=== PATIENT | male | born 1970 | race Hispanic/Latino ===

== ENCOUNTER 2023-03-09 11:11 | Emergency (ER) | payer OTHER ==
[~2023-03-09] VITALS: Ht 180.3 cm; Wt 145.1 kg
[2023-03-09] MEDS ORDERED: DEXAMETHASONE SOD PHOSPHATE 4 MG/ML 1ML VIAL IM ONE (11:30)
[2023-03-09] MEDS ORDERED: KETOROLAC 60 MG VIAL (30MG/ML) IM ONE (11:30)
[2023-03-09] MEDS ORDERED: METH4TAB3 PO (13:06)
[2023-03-09] MEDS ORDERED: IBUP-2077 PO (13:06)
[2023-03-09 14:09] VITALS: BP 142/84; PULSE 70; RESP 18; O2SAT 97
== END 2023-03-09 15:00 | disposition home or self-care (01) ==
LOC: EDH 11:11
DX: M16.11 Unilateral primary osteoarthritis, right hip (principal); E66.9 Obesity, unspecified; Z68.42 Body mass index [BMI] 45.0-49.9, adult; Z90.49 Acquired absence of other specified parts of digestive tract
CPT/HCPCS: 99284; 73502; 96372 ×2; J1100; J1885

== ENCOUNTER 2023-06-01 10:31 | Inpatient (IN) | payer OTHER ==
[~2023-06-01] VITALS: Ht 180.3 cm; Wt 149.1 kg
[2023-06-01] VITALS (12 sets, daily range): BP systolic 115–134; BP diastolic 59–84; PULSE 89–109; RESP 21–35; O2SAT 96–98
[~2023-06-01 10:31] MED LIST: FURO20TA6 PO
[2023-06-01 10:39] LABS: ABG BASE EXCESS -2.1 mmol/L (-2.0-3.0); ABG HCO3 21.3 mmol/L (21.0-28.0); ABG OXYGEN SATURATION 96.3 % (95.0-99.0); ABG PCO2 33 mmHg (35-48); ABG PH 7.431 (7.35-7.450); PO2, ARTERIAL BG 80.3 mmHg (83.0-108.0); VENT MODE, BG NC (ROOM AIR)
[2023-06-01 10:44] LABS: BASOPHILS # (AUTO) 0.12 K/uL (0.00-0.20); BASOPHILS % (AUTO) 0.9 % (0.0-5.0); EOSINOPHILS # (AUTO) 0.19 K/uL (0.00-0.70); EOSINOPHILS % (AUTO) 1.5 % (0.0-8.0); HEMATOCRIT 48.9 % (42-54); IMMATURE GRANULOCYTE ABSOLUTE 0.08 K/uL (0-1); LYMPHOCYTES # (AUTO) 1.5 K/uL (1.0-4.8); LYMPHOCYTES % (AUTO) 11.2 % (21.0-51.0); MEAN CORPUSCULAR HEMOGLOBIN 35.3 pg (27.0-33.0); MEAN CORPUSCULAR HGB CONC 35.6 g/dL (32.0-36.0); MEAN CORPUSCULAR VOLUME 99.2 fL (79-99); MONOCYTES # (AUTO) 2.3 K/uL (0.1-1.0); MONOCYTES % (AUTO) 17.8 % (3.0-13.0); NEUTROPHILS # (AUTO) 8.8 K/uL (1.8-7.7); PLATELET COUNT (AUTO) 146 K/uL (130-400); RED BLOOD CELL COUNT(AUTO) 4.93 MIL/uL (4.50-6.20); RED CELL DISTRIBUTION WIDTH 14.2 % (11.0-15.5); WHITE BLOOD COUNT (AUTO) 12.9 K/uL (4.8-10.8)
[2023-06-01 10:53] LABS: CREATININE 0.9 mg/dL (0.5-1.3); POTASSIUM 4.2 mmol/L (3.5-5.1)
[2023-06-01 10:58] LABS: ALBUMIN 1.9 g/dL (3.5-5.0); BILIRUBIN,TOTAL 4.9 mg/dL (0.2-1.0); MAGNESIUM 1.4 mg/dL (1.80-2.40); TOTAL PROTEIN, SERUM 6.5 g/dL (6.0-8.3)
[2023-06-01 10:58] LABS: RAPID GROUP A STREP negative (NEGATIVE)
[2023-06-01 11:02] LABS: SARS-CoV-2, RNA, NAAT NEGATIVE SARS CoV-2 (NEGATIVE)
[2023-06-01 11:10] LABS: INFLUENZA TYPE A Negative For Type A (NEGATIVE); INFLUENZA TYPE B Negative For Type B (NEGATIVE)
[2023-06-01 11:59] LABS: B-TYPE NATRIURETIC PEPTIDE 7 pg/mL (0-100)
[2023-06-01] MEDS: NITROGLYCERIN 1GM OINT 1 INCH/1GM TD ONE (12:54)
[2023-06-01] MEDS: ASPIRIN 325MG TAB PO ONE (12:54)
[2023-06-01] MEDS: FUROSEMIDE 40MG VIAL IV ONE (12:55)
[2023-06-01] MEDS ORDERED: ACETAMINOPHEN 500 MG TABLET PO PRN (13:00)
[2023-06-01] MEDS ORDERED: VANCOMYCIN PROTOCOL PER PHARMACY IV SCH (13:00)
[2023-06-01] MEDS ORDERED: ONDANSETRON 4MG INJ IVP PRN (13:00)
[2023-06-01] MEDS ORDERED: KETOROLAC 15MG/ML VIAL (15MG/ML) IM PRN (13:00)
[2023-06-01 13:04] LABS: INR 1.26 (0.85-1.15); PROTHROMBIN TIME 14.6 SEC (9.6-11.6)
[2023-06-01 13:05] LABS: PARTIAL THROMBOPLASTIN TIME 29.6 SEC (26.3-35.5)
[2023-06-01 13:07] LABS: HEMOGLOBIN A1C 5.8 % (4.0-6.0)
[2023-06-01] MEDS ORDERED: RENAL DOSE IV SCH (13:30)
[2023-06-01] MEDS: CEFEPIME HCL 2 GM VIAL IVPB SCH (13:35)
[2023-06-01] MEDS: DOXYCYCLINE 100MG+NS 250ML 250 ML IV SCH (13:41)
[2023-06-01] MEDS: PANTOPRAZOLE 40 MG/VIAL IVP SCH (13:42)
[2023-06-01] MEDS: BUDESONIDE 0.5 MG/2 ML INH IH SCH (13:50)
[2023-06-01] MEDS: IPRATROPIUM 0.5 MG/2.5 ML INH IH SCH (13:50)
[2023-06-01] MEDS: IPRATROPIUM/ALBUTEROL SULFATE 3 ML SOLUTION IH ONE (13:53)
[2023-06-01 13:56] LABS: AMPHET/METH SCREEN,URINE NEGATIVE (NEGATIVE); BARBITURATE SCREEN, URINE NEGATIVE (NEGATIVE); BENZODIAZEPINES SCREEN,URINE NEGATIVE (NEGATIVE); CANNABINOID SCREEN,URINE NEGATIVE (NEGATIVE); COCAINE SCREEN,URINE NEGATIVE (NEGATIVE); OPIATE SCREEN,URINE NEGATIVE (NEGATIVE); PHENCYCLIDINE SCREEN,URINE NEGATIVE (NEGATIVE)
[2023-06-01 14:17] LABS: APPEARANCE,URINE CLEAR (CLEAR); BILIRUBIN,URINE NEGATIVE (NEGATIVE); COLOR,URINE YELLOW (YELLOW); GLUCOSE, URINE (UA) NEGATIVE (NEGATIVE); KETONES,URINE NEGATIVE (NEGATIVE); LEUKOCYTE ESTERASE ,URINE NEGATIVE Leu/uL (NEGATIVE); NITRATE,URINE NEGATIVE (NEGATIVE); OCCULT BLOOD,URINE NEGATIVE (NEGATIVE); PH,URINE 5.5 (5.0-8.0); PROTEIN,URINE NEGATIVE (NEGATIVE); UROBILINOGEN,URINE 0.2 mg/dL (0.2-1.0)
[2023-06-01 14:18] LABS: APPEARANCE BODY FLUID CLOUDY (CLEAR); COLOR,BODY FLUID RED (LT YELLOW); SPECIMENTYPE,BODY FLUID PLEURAL
[2023-06-01 14:19] LABS: TOTAL VOLUME,BODY FLUID 150 mL
[2023-06-01 14:20] LABS: ADD UA MICROSCOPIC NO
[2023-06-01 14:29] LABS: BODY FLUID RBC 35678 /cu. mm.; BODY FLUID WBC 1598 /cu. mm.
[2023-06-01] MEDS: VANCOMYCIN 2GM/500 ML BAG 500 ML IV ONE (14:39)
[2023-06-01 14:46] LABS: BF EOSINOPHIL 2 %; BF LYMPHOCYTE 25 %; BF MONOCYTE 2 %; BF TOTAL CELLS COUNTED 100
[2023-06-01] MEDS ORDERED: IOHEXOL-350 75 ML VIAL IV ONE (15:23)
[2023-06-01 15:29] LABS: GLUCOSE PLEURAL FLUID 139; PROTEIN PLEURAL FLUID 3.8 mg/dL
[2023-06-01] MEDS: MAGNESIUM 2GM PREMIX 50ML 50 ML IV SCH (17:11)
[2023-06-01] MEDS: SOLU-MEDROL 40MG VIAL IVP SCH (17:38)
[2023-06-01] MEDS ORDERED: BUDESONIDE 0.5 MG/2 ML INH IH SCH (18:00)
[2023-06-01] MEDS ORDERED: FURO40TA5 PO (18:09)
[2023-06-01] MEDS ORDERED: SPIR50TA5 PO (18:09)
[2023-06-01] MEDS ORDERED: SACU1TAB PO (18:09)
[2023-06-01 18:52] LABS: TOTAL PROTEIN, SERUM 5.9 g/dL (6.0-8.3)
[2023-06-01 19:41] LABS: HIV 1&2 ANTIBODY Non-Reactive (Negative)
[2023-06-01 19:42] LABS: HIV-1 p24 Antigen Non-Reactive (Negative)
[2023-06-01] MEDS: SACUBITRIL/VALSARTAN 1 EACH TABLET PO SCH (20:07)
[2023-06-02] VITALS (52 sets, daily range): BP systolic 91–167; BP diastolic 51–100; PULSE 66–104; RESP 10–29; TEMP 97.5; O2SAT 96–100
[2023-06-02] MEDS ORDERED: KETOROLAC 15MG/ML VIAL (15MG/ML) IV PRN (01:00)
[2023-06-02 04:51] LABS: BASOPHILS # (AUTO) 0.03 K/uL (0.00-0.20); BASOPHILS % (AUTO) 0.2 % (0.0-5.0); HEMATOCRIT 47.7 % (42-54); LYMPHOCYTES # (AUTO) 0.9 K/uL (1.0-4.8); LYMPHOCYTES % (AUTO) 4.8 % (21.0-51.0); MEAN CORPUSCULAR VOLUME 102.8 fL (79-99); MONOCYTES # (AUTO) 1.2 K/uL (0.1-1.0); MONOCYTES % (AUTO) 6.4 % (3.0-13.0); NEUTROPHILS # (AUTO) 16.6 K/uL (1.8-7.7); NEUTROPHILS % (AUTO) 87.5 % (40.0-77.0); PLATELET COUNT (AUTO) 146 K/uL (130-400); RED BLOOD CELL COUNT(AUTO) 4.64 MIL/uL (4.50-6.20); RED CELL DISTRIBUTION WIDTH 14.2 % (11.0-15.5)
[2023-06-02 05:07] LABS: ALBUMIN 1.8 g/dL (3.5-5.0); BILIRUBIN,TOTAL 6.1 mg/dL (0.2-1.0); CREATININE 1.1 mg/dL (0.5-1.3); MAGNESIUM 1.8 mg/dL (1.80-2.40); POTASSIUM 5.1 mmol/L (3.5-5.1); TOTAL PROTEIN, SERUM 6.1 g/dL (6.0-8.3)
[2023-06-02] MEDS: VANCOMYCIN 1.5 GM/250 ML BAG 250 ML IV SCH (05:34)
[2023-06-02] MEDS: HEPARIN 5,000 UNIT VIAL SQ SCH (09:55)
[2023-06-02] MEDS: METOCLOPRAMIDE 10 MG/2 ML VIAL IM STA (12:13)
[2023-06-02] MEDS: METOCLOPRAMIDE 10 MG/2 ML VIAL ONE (12:13)
[2023-06-02] MEDS: METOCLOPRAMIDE 10 MG/2 ML VIAL IVP STA (12:14)
[2023-06-02] MEDS ORDERED: FENTANYL CITRATE PF 50 MCG/1 ML 5ML AMP IV ONE (13:23)
[2023-06-02] MEDS ORDERED: BUPIVACAINE/PF 0.5% 30ML VIAL ONE (13:25)
[2023-06-02] MEDS: 0.9%NACL 1000ML 1,000 ML IV ONE ×2 (13:48→21:43)
[2023-06-02] MEDS ORDERED: ONDANSETRON 4MG INJ IVP PRN (14:00)
[2023-06-02 14:49] LABS: ABG BASE EXCESS -4.4 mmol/L (-2.0-3.0); ABG HCO3 22.3 mmol/L (21.0-28.0); ABG PCO2 47 mmHg (35-48); ABG PH 7.298 (7.35-7.450); CARBON MONOXIDE 0.1; PO2, ARTERIAL BG 164.3 mmHg (83.0-108.0); VENT MODE, BG OR ANESTH (ROOM AIR)
[2023-06-02] MEDS: BUPIVACAINE/PF 0.5% 30ML VIAL INJ ONE (14:51)
[2023-06-02] MEDS ORDERED: MORPHINE PF 100MG/10ML AMP IV ONE (15:27)
[2023-06-02 16:22] LABS: HEPATITIS A IGM ANTIBODY Non-Reactive (Nonreactive); HEPATITIS B CORE IGM ANTIBODY Non-Reactive (Negative); HEPATITIS B SURFACE ANTIGEN Non-Reactive (Nonreactive); HEPATITIS C ANTIBODY Reactive (Nonreactive)
[2023-06-02] MEDS: TRAMADOL HCL 50 MG TABLET PO PRN (16:55)
[2023-06-02] MEDS: SUGAMMADEX SODIUM 200 MG/2 ML VIAL IV ONE (16:56)
[2023-06-02] MEDS: CEFAZOLIN SODIUM 2 GM VIAL IVPB SCH (17:07)
[2023-06-02] MEDS: KETOROLAC 30MG VIAL (30MG/ML) IVP SCH (17:07)
[2023-06-02 19:39] LABS: ABG BASE EXCESS -6.2 mmol/L (-2.0-3.0); ABG HCO3 21.3 mmol/L (21.0-28.0); ABG PCO2 50 mmHg (35-48); PO2, ARTERIAL BG 105.7 mmHg (83.0-108.0); VENT MODE, BG PNR (ROOM AIR)
[2023-06-02 19:58] LABS: BASOPHILS # (AUTO) 0.06 K/uL (0.00-0.20); BASOPHILS % (AUTO) 0.2 % (0.0-5.0); HEMATOCRIT 47.6 % (42-54); IMMATURE GRANULOCYTE ABSOLUTE 0.32 K/uL (0-1); LYMPHOCYTES % (AUTO) 3.1 % (21.0-51.0); MEAN CORPUSCULAR HEMOGLOBIN 36.1 pg (27.0-33.0); MEAN CORPUSCULAR HGB CONC 34.5 g/dL (32.0-36.0); MEAN CORPUSCULAR VOLUME 104.8 fL (79-99); MONOCYTES # (AUTO) 2.9 K/uL (0.1-1.0); MONOCYTES % (AUTO) 9.3 % (3.0-13.0); NEUTROPHILS # (AUTO) 26.6 K/uL (1.8-7.7); NEUTROPHILS % (AUTO) 86.4 % (40.0-77.0); PLATELET COUNT (AUTO) 151 K/uL (130-400); RED BLOOD CELL COUNT(AUTO) 4.54 MIL/uL (4.50-6.20); RED CELL DISTRIBUTION WIDTH 14.2 % (11.0-15.5)
[2023-06-02 20:07] LABS: CREATININE 1.4 mg/dL (0.5-1.3); POTASSIUM 5.1 mmol/L (3.5-5.1); WHITE BLOOD COUNT (AUTO) 30.9 K/uL (4.8-10.8)
[2023-06-02 20:09] LABS: GLUCOSE PLEURAL FLUID 135; PROTEIN PLEURAL FLUID 3.9 mg/dL
[2023-06-02 20:12] LABS: ALBUMIN 1.8 g/dL (3.5-5.0); BILIRUBIN,TOTAL 4.9 mg/dL (0.2-1.0); TOTAL PROTEIN, SERUM 6.1 g/dL (6.0-8.3)
[2023-06-02 20:43] LABS: BODY FLUID RBC 51059 /cu. mm.; BODY FLUID WBC 5224 /cu. mm.
[2023-06-02] MEDS: FAMOTIDINE 20MG TAB PO SCH (20:44)
[2023-06-02] MEDS: CEFEPIME HCL 2 GM VIAL IVPB SCH (20:44)
[2023-06-02] MEDS: DOCUSATE SODIUM 100 MG CAP PO ONE (20:44)
[2023-06-02 20:51] LABS: APPEARANCE BODY FLUID CLOUDY (CLEAR); COLOR,BODY FLUID RED (LT YELLOW); SPECIMENTYPE,BODY FLUID PLEURAL
[2023-06-02 21:05] LABS: TOTAL VOLUME,BODY FLUID 25 mL
[2023-06-02 21:06] LABS: PH PLEURAL FLUID 7
[2023-06-02] MEDS: DOXYCYCLINE 100MG+NS 250ML 250 ML IV SCH (21:29)
[2023-06-02] MEDS: 0.9%NACL 1000ML 2,259 ML IV STA (21:42)
[2023-06-02 21:43] LABS: BAND NEUTROPHILS % (MANUAL) 7 % (0-2); LYMPHOCYTES % (MANUAL) 2 % (22-44); MAN.DIFF COMMENT-IMPRESSION MANUAL DIFFERENTIAL; MONOCYTES % (MANUAL) 7 % (2-9); SEGMENTED NEUTROPHILS % 84 % (40-70); TOTAL CELLS COUNTED 100
[2023-06-02 22:56] LABS: BF LYMPHOCYTE 13 %
[2023-06-03] VITALS (53 sets, daily range): BP systolic 88–157; BP diastolic 43–101; PULSE 77–102; RESP 11–20; TEMP 97–97.8; O2SAT 94–100
[2023-06-03 05:52] LABS: MEAN CORPUSCULAR HEMOGLOBIN 35.5 pg (27.0-33.0); MEAN CORPUSCULAR HGB CONC 34.6 g/dL (32.0-36.0); MEAN CORPUSCULAR VOLUME 102.5 fL (79-99); RED CELL DISTRIBUTION WIDTH 13.9 % (11.0-15.5)
[2023-06-03 06:08] LABS: ALBUMIN 1.6 g/dL (3.5-5.0); BILIRUBIN,TOTAL 3.3 mg/dL (0.2-1.0); CREATININE 1.5 mg/dL (0.5-1.3); MAGNESIUM 2.1 mg/dL (1.80-2.40); POTASSIUM 5.6 mmol/L (3.5-5.1); TOTAL PROTEIN, SERUM 5.4 g/dL (6.0-8.3); VANCOMYCIN TROUGH 15.9 UG/ML (10.0-20.0)
[2023-06-03] MEDS: IPRATROPIUM/ALBUTEROL SULFATE 3 ML SOLUTION IH SCH (06:14)
[2023-06-03] MEDS: 0.9%NACL 1000ML 1,000 ML IV ONE (11:40)
[2023-06-03] MEDS: LINEZOLID 600 MG/ISO-OSM 300 ML IV SCH (14:30)
[2023-06-03] MEDS: 0.9%NACL 1000ML 1,000 ML IV SCH (14:34)
[2023-06-03 17:09] LABS: INR 1.26 (0.85-1.15); PROTHROMBIN TIME 14.6 SEC (9.6-11.6)
[2023-06-03 17:10] LABS: PARTIAL THROMBOPLASTIN TIME 31.3 SEC (26.3-35.5)
[2023-06-03] MEDS ORDERED: VANCOMYCIN 1.25 GM/250 ML BAG 250 ML IV SCH (18:00)
[2023-06-03] MEDS: 0.9%NACL 10ML VIAL IV SCH (20:14)
[2023-06-04] VITALS (41 sets, daily range): BP systolic 103–150; BP diastolic 35–86; PULSE 72–138; RESP 10–26; O2SAT 94–98
[2023-06-04 04:02] LABS: HEMATOCRIT 38.7 % (42-54); MEAN CORPUSCULAR HEMOGLOBIN 35.8 pg (27.0-33.0); MEAN CORPUSCULAR HGB CONC 34.6 g/dL (32.0-36.0); MEAN CORPUSCULAR VOLUME 103.5 fL (79-99); RED BLOOD CELL COUNT(AUTO) 3.74 MIL/uL (4.50-6.20); RED CELL DISTRIBUTION WIDTH 14.2 % (11.0-15.5); WHITE BLOOD COUNT (AUTO) 26.5 K/uL (4.8-10.8)
[2023-06-04 04:41] LABS: CREATININE 2.3 mg/dL (0.5-1.3); POTASSIUM 5.6 mmol/L (3.5-5.1)
[2023-06-04] MEDS: ALBUMIN (HUMAN) 25% 100 ML IV ONE ×2 (05:20→05:26)
[2023-06-04] MEDS: METOPROLOL TARTRATE 1 MG/ML 5ML VIAL IV ONE (05:42)
[2023-06-04] MEDS: KAYEXALATE 15GM/60ML PO ONE (09:38)
[2023-06-04 14:00] LABS: CREATININE,URINE RANDOM 163.48 mg/dL (30-135); SODIUM,URINE RANDOM < 13 mmol/l (40-220)
[2023-06-05] VITALS (29 sets, daily range): BP systolic 118–140; BP diastolic 52–84; PULSE 81–95; RESP 14–21; O2SAT 93–99
[2023-06-05] MEDS: MORPHINE 2 MG SYG IVP PRN (01:00)
[2023-06-05 04:25] LABS: BASOPHILS # (AUTO) 0.02 K/uL (0.00-0.20); BASOPHILS % (AUTO) 0.1 % (0.0-5.0); EOSINOPHILS # (AUTO) 0.01 K/uL (0.00-0.70); EOSINOPHILS % (AUTO) 0.1 % (0.0-8.0); HEMATOCRIT 35.1 % (42-54); IMMATURE GRANULOCYTE ABSOLUTE 0.13 K/uL (0-1); LYMPHOCYTES # (AUTO) 0.9 K/uL (1.0-4.8); LYMPHOCYTES % (AUTO) 5.8 % (21.0-51.0); MEAN CORPUSCULAR HEMOGLOBIN 35.2 pg (27.0-33.0); MEAN CORPUSCULAR HGB CONC 33.9 g/dL (32.0-36.0); MEAN CORPUSCULAR VOLUME 103.8 fL (79-99); MONOCYTES # (AUTO) 2.3 K/uL (0.1-1.0); MONOCYTES % (AUTO) 14.6 % (3.0-13.0); NEUTROPHILS # (AUTO) 12.4 K/uL (1.8-7.7); NEUTROPHILS % (AUTO) 78.6 % (40.0-77.0); PLATELET COUNT (AUTO) 109 K/uL (130-400); RED BLOOD CELL COUNT(AUTO) 3.38 MIL/uL (4.50-6.20); RED CELL DISTRIBUTION WIDTH 14.2 % (11.0-15.5); WHITE BLOOD COUNT (AUTO) 15.7 K/uL (4.8-10.8)
[2023-06-05 05:16] LABS: CREATININE 1.4 mg/dL (0.5-1.3); MAGNESIUM 1.8 mg/dL (1.80-2.40); PHOSPHORUS 3.6 mg/dL (2.5-4.9); POTASSIUM 4.6 mmol/L (3.5-5.1)
[2023-06-05] MEDS: LEVOFLOXACIN 750 MG/D5W 150ML BAG IV SCH (11:43)
[2023-06-06] VITALS (14 sets, daily range): BP systolic 90–114; BP diastolic 58–74; PULSE 73–140; RESP 18–22; O2SAT 91–98
[2023-06-06] MEDS: METOPROLOL SUCCINATE 25 MG TAB.SR.24H PO STA (03:28)
[2023-06-06] MEDS ORDERED: AMIODARONE 900MG VIAL 540 MG in DEXTROSE 5%-WATER 300 ML IV SCH (05:00)
[2023-06-06] MEDS ORDERED: AMIODARONE 900MG VIAL 360 MG in DEXTROSE 5%-WATER 200 ML IV SCH (05:00)
[2023-06-06 05:08] LABS: HEMATOCRIT 42.7 % (42-54); MEAN CORPUSCULAR HGB CONC 34.2 g/dL (32.0-36.0); MEAN CORPUSCULAR VOLUME 105.4 fL (79-99); RED BLOOD CELL COUNT(AUTO) 4.05 MIL/uL (4.50-6.20); RED CELL DISTRIBUTION WIDTH 14.6 % (11.0-15.5); WHITE BLOOD COUNT (AUTO) 13.4 K/uL (4.8-10.8)
[2023-06-06 05:24] LABS: CREATININE 1.1 mg/dL (0.5-1.3); MAGNESIUM 1.8 mg/dL (1.80-2.40); POTASSIUM 4.2 mmol/L (3.5-5.1)
[2023-06-06] MEDS: AMIODARONE 150MG VIAL ONE (05:29)
[2023-06-06] MEDS: DILTIAZEM 25MG INJ IVP ONE (05:36)
[2023-06-06] MEDS: [UNRECOGNIZED DRUG - OTHER] IV PRN (06:51)
[2023-06-06] MEDS: DILTIAZEM IV PRN (06:51)
[2023-06-06 12:34] LABS: ABG BASE EXCESS -1.7 mmol/L (-2.0-3.0); ABG HCO3 22.7 mmol/L (21.0-28.0); ABG OXYGEN SATURATION 94.6 % (95.0-99.0); ABG PCO2 38 mmHg (35-48); ABG PH 7.396 (7.35-7.450); PO2, ARTERIAL BG 72.4 mmHg (83.0-108.0); VENT MODE, BG NC (ROOM AIR)
[2023-06-06] MEDS: DRONEDARONE HYDROCHLORIDE 400 MG TABLET PO SCH (14:16)
[2023-06-06] MEDS: FUROSEMIDE 40 MG TABLET PO SCH (21:51)
[2023-06-07] VITALS (18 sets, daily range): BP systolic 90–141; BP diastolic 54–82; PULSE 68–144; RESP 18–22; O2SAT 91–94
[2023-06-07 04:20] LABS: BASOPHILS # (AUTO) 0.04 K/uL (0.00-0.20); BASOPHILS % (AUTO) 0.3 % (0.0-5.0); EOSINOPHILS # (AUTO) 0.34 K/uL (0.00-0.70); EOSINOPHILS % (AUTO) 2.2 % (0.0-8.0); HEMATOCRIT 42.8 % (42-54); IMMATURE GRANULOCYTE ABSOLUTE 0.22 K/uL (0-1); LYMPHOCYTES # (AUTO) 1.4 K/uL (1.0-4.8); LYMPHOCYTES % (AUTO) 8.8 % (21.0-51.0); MEAN CORPUSCULAR HEMOGLOBIN 35.9 pg (27.0-33.0); MEAN CORPUSCULAR HGB CONC 34.1 g/dL (32.0-36.0); MEAN CORPUSCULAR VOLUME 105.2 fL (79-99); MONOCYTES # (AUTO) 2.5 K/uL (0.1-1.0); NEUTROPHILS # (AUTO) 11.3 K/uL (1.8-7.7); NEUTROPHILS % (AUTO) 71.3 % (40.0-77.0); PLATELET COUNT (AUTO) 100 K/uL (130-400); RED BLOOD CELL COUNT(AUTO) 4.07 MIL/uL (4.50-6.20); RED CELL DISTRIBUTION WIDTH 14.7 % (11.0-15.5); WHITE BLOOD COUNT (AUTO) 15.8 K/uL (4.8-10.8)
[2023-06-07 04:44] LABS: CREATININE 1.1 mg/dL (0.5-1.3); MAGNESIUM 1.5 mg/dL (1.80-2.40); PHOSPHORUS 3.3 mg/dL (2.5-4.9)
[2023-06-07] MEDS: IPRATROPIUM 0.5 MG/2.5 ML INH IH SCH (06:00)
[2023-06-07] MEDS: TRAMADOL HCL 50 MG TABLET PO PRN (08:37)
[2023-06-07] MEDS: ENOXAPARIN SODIUM 40 MG/0.4 ML SYRINGE SQ SCH (08:39)
[2023-06-07] MEDS: SPIRONOLACTONE 25 MG TAB PO SCH (10:36)
[2023-06-07] MEDS: METOLAZONE 2.5 MG TABLET PO ONE (10:36)
[2023-06-07] MEDS: DILTIAZEM 60MG TAB PO SCH (13:31)
[2023-06-08] VITALS (16 sets, daily range): BP systolic 105–129; BP diastolic 58–69; PULSE 68–89; RESP 18–24; O2SAT 88–96
[2023-06-08 04:09] LABS: BASOPHILS # (AUTO) 0.07 K/uL (0.00-0.20); BASOPHILS % (AUTO) 0.4 % (0.0-5.0); EOSINOPHILS # (AUTO) 0.58 K/uL (0.00-0.70); EOSINOPHILS % (AUTO) 3.4 % (0.0-8.0); HEMATOCRIT 41.2 % (42-54); IMMATURE GRANULOCYTE ABSOLUTE 0.36 K/uL (0-1); LYMPHOCYTES # (AUTO) 1.6 K/uL (1.0-4.8); LYMPHOCYTES % (AUTO) 9.1 % (21.0-51.0); MEAN CORPUSCULAR HEMOGLOBIN 35.6 pg (27.0-33.0); MEAN CORPUSCULAR HGB CONC 34.2 g/dL (32.0-36.0); MONOCYTES # (AUTO) 2.7 K/uL (0.1-1.0); MONOCYTES % (AUTO) 15.8 % (3.0-13.0); NEUTROPHILS % (AUTO) 69.2 % (40.0-77.0); NUCLEATED RED BLOOD CELLS 0.1 % (0.0-0.19); PLATELET COUNT (AUTO) 104 K/uL (130-400); RED BLOOD CELL COUNT(AUTO) 3.96 MIL/uL (4.50-6.20); RED CELL DISTRIBUTION WIDTH 14.6 % (11.0-15.5); WHITE BLOOD COUNT (AUTO) 17.3 K/uL (4.8-10.8)
[2023-06-08 04:27] LABS: CREATININE 1.4 mg/dL (0.5-1.3); POTASSIUM 3.8 mmol/L (3.5-5.1)
[2023-06-08] MEDS: KCL 20 MEQ ERTAB PO PRN (05:50)
[2023-06-08] MEDS: METOLAZONE 2.5 MG TABLET PO SCH (10:36)
[2023-06-08] MEDS: ACETAMINOPHEN 325 MG TAB PO PRN (20:06)
[2023-06-09] VITALS (11 sets, daily range): BP systolic 106–135; BP diastolic 63–76; PULSE 62–83; RESP 18–22; O2SAT 93–95
[2023-06-09 03:53] LABS: BASOPHILS # (AUTO) 0.05 K/uL (0.00-0.20); BASOPHILS % (AUTO) 0.3 % (0.0-5.0); EOSINOPHILS # (AUTO) 0.54 K/uL (0.00-0.70); EOSINOPHILS % (AUTO) 3.4 % (0.0-8.0); HEMATOCRIT 38.8 % (42-54); LYMPHOCYTES # (AUTO) 1.5 K/uL (1.0-4.8); LYMPHOCYTES % (AUTO) 9.4 % (21.0-51.0); MEAN CORPUSCULAR HEMOGLOBIN 35.8 pg (27.0-33.0); MEAN CORPUSCULAR HGB CONC 35.8 g/dL (32.0-36.0); MONOCYTES # (AUTO) 2.8 K/uL (0.1-1.0); MONOCYTES % (AUTO) 17.8 % (3.0-13.0); NEUTROPHILS # (AUTO) 10.6 K/uL (1.8-7.7); NEUTROPHILS % (AUTO) 66.6 % (40.0-77.0); PLATELET COUNT (AUTO) 108 K/uL (130-400); RED BLOOD CELL COUNT(AUTO) 3.88 MIL/uL (4.50-6.20); RED CELL DISTRIBUTION WIDTH 14.8 % (11.0-15.5); WHITE BLOOD COUNT (AUTO) 15.9 K/uL (4.8-10.8)
[2023-06-09 04:08] LABS: CREATININE 1.6 mg/dL (0.5-1.3); POTASSIUM 3.8 mmol/L (3.5-5.1)
[2023-06-09] MEDS: FUROSEMIDE 40 MG TABLET PO SCH (07:49)
[2023-06-09 09:28] LABS: INR 1.22 (0.85-1.15); PROTHROMBIN TIME 14.2 SEC (9.6-11.6)
[2023-06-09 09:29] LABS: PARTIAL THROMBOPLASTIN TIME 30.8 SEC (26.3-35.5)
[2023-06-09] MEDS: REGADENOSON 0.4 MG/5 ML PF SYG IVP SCH (16:29)
[2023-06-10] VITALS (11 sets, daily range): BP systolic 110–132; BP diastolic 63–72; PULSE 69–82; RESP 18–22; O2SAT 93–98
[2023-06-10 04:08] LABS: BASOPHILS # (AUTO) 0.04 K/uL (0.00-0.20); BASOPHILS % (AUTO) 0.3 % (0.0-5.0); EOSINOPHILS # (AUTO) 0.42 K/uL (0.00-0.70); EOSINOPHILS % (AUTO) 3.1 % (0.0-8.0); HEMATOCRIT 39.3 % (42-54); IMMATURE GRANULOCYTE ABSOLUTE 0.24 K/uL (0-1); LYMPHOCYTES # (AUTO) 1.5 K/uL (1.0-4.8); LYMPHOCYTES % (AUTO) 10.8 % (21.0-51.0); MEAN CORPUSCULAR HEMOGLOBIN 35.8 pg (27.0-33.0); MEAN CORPUSCULAR HGB CONC 34.9 g/dL (32.0-36.0); MEAN CORPUSCULAR VOLUME 102.6 fL (79-99); MONOCYTES # (AUTO) 3.1 K/uL (0.1-1.0); MONOCYTES % (AUTO) 22.8 % (3.0-13.0); NEUTROPHILS # (AUTO) 8.2 K/uL (1.8-7.7); NEUTROPHILS % (AUTO) 61.2 % (40.0-77.0); NUCLEATED RED BLOOD CELLS 0.2 % (0.0-0.19); PLATELET COUNT (AUTO) 110 K/uL (130-400); RED BLOOD CELL COUNT(AUTO) 3.83 MIL/uL (4.50-6.20); RED CELL DISTRIBUTION WIDTH 14.8 % (11.0-15.5); WHITE BLOOD COUNT (AUTO) 13.4 K/uL (4.8-10.8)
[2023-06-10 04:22] LABS: ALBUMIN 1.6 g/dL (3.5-5.0); BILIRUBIN,TOTAL 3.6 mg/dL (0.2-1.0); CREATININE 1.9 mg/dL (0.5-1.3); MAGNESIUM 1.5 mg/dL (1.80-2.40); PHOSPHORUS 4.7 mg/dL (2.5-4.9); TOTAL PROTEIN, SERUM 5.1 g/dL (6.0-8.3)
[2023-06-10] MEDS: PANTOPRAZOLE 40 MG TAB DR PO SCH (09:54)
[2023-06-10] MEDS: SIMETHICONE 80 MG TAB.CHEW PO PRN (17:04)
[2023-06-10] MEDS: LACTULOSE 20 GM/30 ML UDCUP PO PRN (21:20)
[2023-06-10] MEDS: MAGNESIUM OXIDE 400 MG TABLET PO SCH (21:20)
[2023-06-11] VITALS (14 sets, daily range): BP systolic 107–144; BP diastolic 53–71; PULSE 60–86; RESP 18–22; O2SAT 84–97
[2023-06-11 04:10] LABS: BASOPHILS # (AUTO) 0.03 K/uL (0.00-0.20); BASOPHILS % (AUTO) 0.2 % (0.0-5.0); EOSINOPHILS # (AUTO) 0.35 K/uL (0.00-0.70); EOSINOPHILS % (AUTO) 2.7 % (0.0-8.0); HEMATOCRIT 36.6 % (42-54); IMMATURE GRANULOCYTE ABSOLUTE 0.16 K/uL (0-1); LYMPHOCYTES # (AUTO) 1.3 K/uL (1.0-4.8); LYMPHOCYTES % (AUTO) 10.2 % (21.0-51.0); MEAN CORPUSCULAR HEMOGLOBIN 35.5 pg (27.0-33.0); MEAN CORPUSCULAR HGB CONC 35.8 g/dL (32.0-36.0); MEAN CORPUSCULAR VOLUME 99.2 fL (79-99); MONOCYTES # (AUTO) 3.5 K/uL (0.1-1.0); MONOCYTES % (AUTO) 26.5 % (3.0-13.0); NEUTROPHILS # (AUTO) 7.8 K/uL (1.8-7.7); NEUTROPHILS % (AUTO) 59.2 % (40.0-77.0); NUCLEATED RED BLOOD CELLS 0.3 % (0.0-0.19); PLATELET COUNT (AUTO) 96 K/uL (130-400); RED BLOOD CELL COUNT(AUTO) 3.69 MIL/uL (4.50-6.20); RED CELL DISTRIBUTION WIDTH 14.7 % (11.0-15.5); WHITE BLOOD COUNT (AUTO) 13.2 K/uL (4.8-10.8)
[2023-06-11 04:25] LABS: ALBUMIN 1.7 g/dL (3.5-5.0); MAGNESIUM 1.7 mg/dL (1.80-2.40); POTASSIUM 3.5 mmol/L (3.5-5.1); TOTAL PROTEIN, SERUM 5.2 g/dL (6.0-8.3)
[2023-06-11] MEDS: FUROSEMIDE 40 MG TABLET PO SCH (08:42)
[2023-06-11] MEDS: MAGNESIUM OXIDE 400 MG TABLET PO ONE (12:38)
[2023-06-11] MEDS: POTASSIUM CHLORIDE 10% ELIXIR 20 MEQ/15 ML UDCUP PO PRN (12:39)
[2023-06-12 04:21] LABS: BASOPHILS # (AUTO) 0.04 K/uL (0.00-0.20); BASOPHILS % (AUTO) 0.3 % (0.0-5.0); EOSINOPHILS # (AUTO) 0.37 K/uL (0.00-0.70); EOSINOPHILS % (AUTO) 2.8 % (0.0-8.0); IMMATURE GRANULOCYTE ABSOLUTE 0.16 K/uL (0-1); LYMPHOCYTES # (AUTO) 1.7 K/uL (1.0-4.8); LYMPHOCYTES % (AUTO) 12.7 % (21.0-51.0); MEAN CORPUSCULAR HEMOGLOBIN 35.6 pg (27.0-33.0); MEAN CORPUSCULAR VOLUME 101.7 fL (79-99); MONOCYTES # (AUTO) 3.4 K/uL (0.1-1.0); MONOCYTES % (AUTO) 25.9 % (3.0-13.0); NEUTROPHILS # (AUTO) 7.4 K/uL (1.8-7.7); NEUTROPHILS % (AUTO) 57.1 % (40.0-77.0); NUCLEATED RED BLOOD CELLS 0.5 % (0.0-0.19); PLATELET COUNT (AUTO) 90 K/uL (130-400); RED BLOOD CELL COUNT(AUTO) 3.54 MIL/uL (4.50-6.20); RED CELL DISTRIBUTION WIDTH 14.4 % (11.0-15.5)
[2023-06-12 04:26] LABS: ALBUMIN 1.7 g/dL (3.5-5.0); BILIRUBIN,TOTAL 4.7 mg/dL (0.2-1.0); CREATININE 2.3 mg/dL (0.5-1.3); POTASSIUM 3.7 mmol/L (3.5-5.1); TOTAL PROTEIN, SERUM 5.1 g/dL (6.0-8.3)
[2023-06-12 05:00] VITALS: BP 100/57; PULSE 71; RESP 20
[2023-06-12 08:01] VITALS: BP 122/60; PULSE 80; RESP 20
[2023-06-12 08:22] VITALS: O2SAT 95
[2023-06-12] MEDS: FUROSEMIDE 20 MG TABLET PO SCH (08:39)
[2023-06-12 11:14] VITALS: PULSE 73; RESP 18
[2023-06-12 11:16] VITALS: PULSE 73; RESP 18; O2SAT 94
[2023-06-12 11:29] VITALS: BP 105/52; PULSE 62; RESP 20
[2023-06-12] MEDS ORDERED: DRON400T7 PO (11:59)
[2023-06-12] MEDS ORDERED: FURO20TA6 PO (11:59)
[2023-06-12] MEDS ORDERED: DILT60TA3 PO (11:59)
[2023-06-12] MEDS ORDERED: CEFD300C3 PO (11:59)
[2023-06-12] MEDS ORDERED: MAGN400T7 PO (11:59)
[2023-06-12] MEDS ORDERED: SPIR25TA6 PO (11:59)
[2023-06-12] MEDS: LEVOFLOXACIN 750 MG TABLET PO SCH (13:08)
[2023-06-12 13:40] LABS: CHOLESTEROL 89 mg/dL (<200); HDL CHOLESTEROL 28 mg/dL (29-71); LDL DIRECT 58 mg/dL (0-99); TRIGLYCERIDES 49 mg/dL (30-200)
== END 2023-06-12 17:53 | disposition left against medical advice (07) | DRG 853 ==
LOC: EDH 10:31 → EDHIP 13:07 → 2BH 15:26 → 2AH 06-05 16:55
PROVIDERS: ADMIT Internal Medicine; ATTEND Internal Medicine
PROC: 0W9B3ZZ Drainage of Left Pleural Cavity, Percutaneous Approach (ICD-10-PCS; principal; 2023-06-01)
PROC: 0B5P0ZZ Destruction of Left Pleura, Open Approach (ICD-10-PCS; 2023-06-02)
PROC: 0W9B00Z Drainage of Left Pleural Cavity with Drainage Device, Open Approach (ICD-10-PCS; 2023-06-02)
PROC: 05HY33Z Insertion of Infusion Device into Upper Vein, Percutaneous Approach (ICD-10-PCS; 2023-06-03)
PROC: B54NZZA Ultrasonography of Left Upper Extremity Veins, Guidance (ICD-10-PCS; 2023-06-03)
PROC: 4A02XM4 Measurement of Cardiac Total Activity, External Approach (ICD-10-PCS; 2023-06-09)
PROC: 3E073KZ Introduction of Other Diagnostic Substance into Coronary Artery, Percutaneous Approach (ICD-10-PCS; 2023-06-09)
PROC: 05HA33Z Insertion of Infusion Device into Left Brachial Vein, Percutaneous Approach (ICD-10-PCS; 2023-06-09)
PROC: B54NZZA Ultrasonography of Left Upper Extremity Veins, Guidance (ICD-10-PCS; 2023-06-09)
DX: A41.9 Sepsis, unspecified organism (principal); E43 Unspecified severe protein-calorie malnutrition; I50.43 Acute on chronic combined systolic (congestive) and diastolic (congestive) heart failure; J86.9 Pyothorax without fistula; J96.01 Acute respiratory failure with hypoxia; J18.9 Pneumonia, unspecified organism; E87.1 Hypo-osmolality and hyponatremia; N17.9 Acute kidney failure, unspecified; I13.0 Hypertensive heart and chronic kidney disease with heart failure and stage 1 through stage 4 chronic kidney disease, or unspecified chronic kidney disease; D62 Acute posthemorrhagic anemia; I42.9 Cardiomyopathy, unspecified; Z68.42 Body mass index [BMI] 45.0-49.9, adult; J90 Pleural effusion, not elsewhere classified; E86.1 Hypovolemia; Z20.822 Contact with and (suspected) exposure to COVID-19; E66.01 Morbid (severe) obesity due to excess calories; N18.9 Chronic kidney disease, unspecified; E11.22 Type 2 diabetes mellitus with diabetic chronic kidney disease; K74.60 Unspecified cirrhosis of liver; B18.2 Chronic viral hepatitis C; E78.00 Pure hypercholesterolemia, unspecified; I25.10 Atherosclerotic heart disease of native coronary artery without angina pectoris; I45.10 Unspecified right bundle-branch block; I48.0 Paroxysmal atrial fibrillation; Z79.899 Other long term (current) drug therapy; Z87.01 Personal history of pneumonia (recurrent); Z87.891 Personal history of nicotine dependence; Z90.49 Acquired absence of other specified parts of digestive tract
CPT/HCPCS: 32555; 36415; 36600; 71045; 71270; 76700; 78452; 80048; 80053; 80061; 80074; 80202; 80305; 81003; 82150; 82435; 82533; 82570; 82803; 82945; 82947; 82948; 83036; 83605; 83615; 83735; 83880; 83986; 84100; 84132; 84145; 84155; 84157; 84295; 84300; 84484; 84540; 85018; 85025; 85027; 85610; 85651; 85730; 86140; 86701; 86850; 86900; 86901; 87040; 87071; 87076; 87077; 87116; 87186; 87205; 87206; 87390; 87635; 87804; 87880; 88112; 88305; 89051; 93005; 93017; 93306; 93970; 94640; 94660; 94664; 94760; 96365; 96374; 96375; A4344; A7048; A9500; C1729; C1894; C9113; G0378; J0282; J0692; J1644; J1650; J1885; J1940; J1956; J2020; J2250; J2270; J2274; J2405; J2704; J2765; J2785; J2920; J3010; J3475; J3490; J7030; J7040; P9046; Q9967; 3370; A4216; A4222; A4223; A4649; A4930; A6219; C1750; G0168; J0665; J0690; J3370

== ENCOUNTER 2023-06-20 18:16 | Emergency (ER) | payer OTHER ==
[~2023-06-20] VITALS: Ht 180.3 cm; Wt 137.9 kg
[~2023-06-20 18:16] MED LIST changes: +CEFD300C3 PO; +DILT60TA3 PO; +DRON400T7 PO; +MAGN400T7 PO; +SPIR25TA6 PO
[2023-06-20 19:34] VITALS: BP 113/60; PULSE 81; RESP 19; O2SAT 98
[2023-06-20 19:45] LABS: CREATININE 2.3 mg/dL (0.5-1.3); POTASSIUM 4.4 mmol/L (3.5-5.1)
[2023-06-20 19:47] LABS: BASOPHILS # (AUTO) 0.09 K/uL (0.00-0.20); BASOPHILS % (AUTO) 0.7 % (0.0-5.0); EOSINOPHILS # (AUTO) 0.18 K/uL (0.00-0.70); EOSINOPHILS % (AUTO) 1.4 % (0.0-8.0); IMMATURE GRANULOCYTE ABSOLUTE 0.12 K/uL (0-1); LYMPHOCYTES # (AUTO) 1.1 K/uL (1.0-4.8); LYMPHOCYTES % (AUTO) 8.4 % (21.0-51.0); MEAN CORPUSCULAR HEMOGLOBIN 35.9 pg (27.0-33.0); MEAN CORPUSCULAR VOLUME 102.6 fL (79-99); MONOCYTES # (AUTO) 2.2 K/uL (0.1-1.0); NEUTROPHILS # (AUTO) 9.3 K/uL (1.8-7.7); NEUTROPHILS % (AUTO) 71.6 % (40.0-77.0); PLATELET COUNT (AUTO) 135 K/uL (130-400); RED BLOOD CELL COUNT(AUTO) 3.51 MIL/uL (4.50-6.20); RED CELL DISTRIBUTION WIDTH 15.6 % (11.0-15.5)
[2023-06-20 19:49] LABS: ALBUMIN 1.9 g/dL (3.5-5.0); BILIRUBIN,TOTAL 2.9 mg/dL (0.2-1.0); MAGNESIUM 1.7 mg/dL (1.80-2.40); TOTAL PROTEIN, SERUM 5.8 g/dL (6.0-8.3)
[2023-06-20 20:09] LABS: B-TYPE NATRIURETIC PEPTIDE 22 pg/mL (0-100)
== END 2023-06-20 20:34 | disposition left against medical advice (07) ==
LOC: EDH 18:16
DX: R14.0 Abdominal distension (gaseous) (principal); R10.9 Unspecified abdominal pain; R06.02 Shortness of breath; I11.0 Hypertensive heart disease with heart failure; I50.9 Heart failure, unspecified; Z90.89 Acquired absence of other organs
CPT/HCPCS: 36415; 71045; 80053; 82140; 82550; 83735; 83880; 84484; 85025; 93005